=== PATIENT | female | born 1990 | race Caucasian/White ===

== ENCOUNTER 2022-06-30 21:10 | Emergency (ER) | payer MEDICAID, OTHER ==
[~2022-06-30] VITALS: Ht 162.6 cm; Wt 65.8 kg
[2022-06-30] MEDS ORDERED: KETOROLAC TROMETHAMINE INJ 30 MG/ML VIAL ONE (22:45)
[2022-06-30] MEDS ORDERED: KETOROLAC TROMETHAMINE INJ 30 MG/ML VIAL IV ONE (23:00)
[2022-06-30] MEDS ORDERED: IV NS 0.9% 1,000 ML IV ONE (23:00)
[2022-06-30 23:29] VITALS: BP 115/77
--- NOTE | 2022-06-30 23:29 | NUR ---
Patient discharged to home in stable condition. Written and verbal after care instructions given. Patient verbalizes understanding of instruction.
== END 2022-06-30 23:34 | disposition home or self-care (01) ==
LOC: EDSEX 21:14 → ER 21:14
DX: B34.9 Viral infection, unspecified (principal); Z20.822 Contact with and (suspected) exposure to COVID-19; M79.10 Myalgia, unspecified site; M25.50 Pain in unspecified joint
CPT/HCPCS: 99284; 96374; 96361; 87426; 87804; 87420; J1885; J7030; C9803